=== PATIENT | male | born 1990 | race African-American/Black ===

== ENCOUNTER 2017-02-25 19:44 | Emergency (ER) | payer OTHER ==
[2017-02-25 19:50] VITALS: BP 144/90; PULSE 55; TEMP 98.3; BMI 23.7
[2017-02-25] MEDS ORDERED: IBUPROFEN 400 MG TABLET (FP) PO ONE (20:50)
--- NOTE | 2017-02-25 20:50 | PDOC ---
History of Present Illness - General Chief Complaint: Injury Stated Complaint: FALL INJURY Time Seen by Provider: 02/25/17 20:14 Past History - Past Medical History Allergies/Adverse Reactions: Allergies Allergy/AdvReac Type Severity Reaction Status Date / Time No Known Allergies Allergy Verified 02/25/17 20:54 Home Medications: Ambulatory Orders Docusate Sodium [Colace -] 100 mg PO DAILY #7 capsule 02/25/17 Ibuprofen 800 mg PO TID #30 tablet 02/25/17 COPD: No - Suicide/Smoking/Psychosocial Hx Smoking History: Never smoked Have you smoked in the past 12 months: No Information on smoking cessation initiated: No Hx Alcohol Use: No Drug/Substance Use Hx: No Substance Use Type: Marijuana *Physical Exam - Vital Signs Last Vital Signs Temp Pulse Resp BP Pulse Ox 98.3 F 55 L 16 144/90 97 02/25/17 19:45 02/25/17 19:45 02/25/17 19:45 02/25/17 19:45 02/25/17 19:45 *DC/Admit/Observation/Transfer Diagnosis at time of Disposition: Concussion Qualifiers: Encounter type: initial encounter Loss of consciousness presence/duration: without LOC Qualified Code(s): S06.0X0A - Concussion without loss of consciousness, initial encounter Constipation Qualifiers: Constipation type: unspecified constipation type Qualified Code(s): K59.00 - Constipation, unspecified - Discharge Dispostion Disposition: HOME Condition at time of disposition: Good Admit: No - Referrals Referrals: Esmer Willoughby MD [Primary Care Provider] - Darren Perez MD [Staff Physician] - - Patient Instructions Printed Discharge Instructions: DI for Constipation, DI for Concussion Additional Instructions: Your rib x-ray was negative today. However it did show that you're constipated. This could be a cause for your pain. Please take Colace twice a day to help with your symptoms. Increased your water and fruit intake. Eat regular meals with snacks in between. You also most likely have a concussion. Please avoid close work and screens for the next week. Avoid physical activity where he may injury or head. If you're still having symptoms within a week please follow up with neurology a referral has been provided for you. Return to the emergency department if you have worsening abdominal pain, fevers , lightheadedness, loss of consciousness, or any changes in your symptoms. - Post Discharge Activity
== END 2017-02-25 22:18 | disposition home or self-care (01) ==
LOC: JERFT 19:44
DX: S06.0X9A Concussion with loss of consciousness of unspecified duration, initial encounter (principal); K59.00 Constipation, unspecified; W10.8XXA Fall (on) (from) other stairs and steps, initial encounter; Y93.9 Activity, unspecified; Y92.9 Unspecified place or not applicable; Y99.9 Unspecified external cause status
CPT/HCPCS: 71101-TC; 99281-25

== ENCOUNTER 2017-11-18 11:23 | Emergency (ER) | payer OTHER ==
[2017-11-18 11:48] VITALS: BP 127/83; PULSE 83; TEMP 98.5; BMI 24.3
[2017-11-18] MEDS ORDERED: AZITHROMYCIN 1 GM PACKET PO ONE (12:31)
--- NOTE | 2017-11-18 12:31 | PDOC ---
History of Present Illness - General Chief Complaint: Revisit, Lab Variance Stated Complaint: PERSONAL EVALUATION Time Seen by Provider: 11/18/17 12:02 History Source: Patient Exam Limitations: No Limitations (chlamydia contact) Past History - Travel Traveled outside of the country in the last 30 days: No Close contact w/someone who was outside of country & ill: No - Past Medical History Allergies/Adverse Reactions: Allergies Allergy/AdvReac Type Severity Reaction Status Date / Time No Known Allergies Allergy Verified 11/18/17 11:40 Home Medications: Ambulatory Orders Docusate Sodium [Colace -] 100 mg PO DAILY #7 capsule 02/25/17 Ibuprofen 800 mg PO TID #30 tablet 02/25/17 COPD: No - Suicide/Smoking/Psychosocial Hx Smoking History: Never smoked Have you smoked in the past 12 months: No Hx Alcohol Use: No Drug/Substance Use Hx: Yes (MARIJUANA) Substance Use Type: Marijuana Review of Systems - Review of Systems Is the patient limited Taiwanese proficient: No Constitutional: No: Chills, Fever ABD/GI: No: Abdominal Distended : No: Burning, Dysuria, Discharge, Frequency, Flank Pain, Hematuria, Incontinence, Pain, Urgency, Testicular Mass, Testicular Swelling, Lesions, Testicular Pain Musculoskeletal: No: See HPI *Physical Exam - Vital Signs Last Vital Signs Temp Pulse Resp BP Pulse Ox 98.5 F 83 18 127/83 99 11/18/17 11:41 11/18/17 11:41 11/18/17 11:41 11/18/17 11:41 11/18/17 11:41 - Physical Exam General Appearance: Yes: Nourished Respiratory/Chest: positive: Lungs Clear, Normal Breath Sounds Cardiovascular: positive: Regular Rhythm, Regular Rate, S1, S2 Neurologic: positive: 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 Pt denies any sx. He was recently tested for HIV 2wks ago, wnl GC/Chlam urine sent safer sex [id number] done *DC/Admit/Observation/Transfer Diagnosis at time of Disposition: Chlamydia contact - Discharge Dispostion Disposition: HOME Condition at time of disposition: Stable Decision to Admit order: No - Referrals Referrals: Esmer Willoughby MD [Primary Care Provider] - - Patient Instructions Printed Discharge Instructions: DI for Chlamydia Additional Instructions: I discussed the physical exam findings, ancillary test results and final diagnoses with the patient. I answered all of the patient's questions. The patient was satisfied with the care received and felt comfortable with the discharge plan and treatment plan. The patient will call their primary care physician within 24 hours to arrange follow-up and will return to the Emergency Department with any new, persistant or worsening symptoms. - Post Discharge Activity
[2017-11-18] MEDS ORDERED: AZITHROMYCIN 250 MG TABLET ONE (12:33)
[2017-11-18 12:42] LABS: URINE APPEARANCE CLEAR; URINE BILIRUBIN NEGATIVE (<2.0 mg/dL); URINE COLOR LTYELLOW; URINE GLUCOSE (UA) NEGATIVE (NEGATIVE); URINE KETONE NEGATIVE (NEGATIVE); URINE LEUK ESTERASE NEGATIVE (NEGATIVE); URINE NITRITE NEGATIVE (NEGATIVE); URINE PROTEIN NEGATIVE (NEGATIVE); URINE UROBILINOGEN NEGATIVE mg/dL (0.2-1.0)
== END 2017-11-18 12:36 | disposition home or self-care (01) ==
LOC: JERFT 11:23 → JER 11:23 → JERFT 12:36
DX: Z20.2 Contact with and (suspected) exposure to infections with a predominantly sexual mode of transmission (principal)
CPT/HCPCS: 36415; 81003; 87086; 87491; 87591; 99281-25